=== PATIENT | male | born 1985 | race Two or more races ===

== ENCOUNTER 2022-03-06 14:37 | Outpatient (CLI) | payer OTHER | END 2022-03-06 14:47 | disposition home or self-care (01) | LOC: PPH VACUNA 14:37 | PROVIDERS: ATTEND Emergency Medicine Pediatric Emergency Medicine | DX: Z23 Encounter for immunization (principal) ==

== ENCOUNTER 2022-07-18 08:23 | Outpatient (CLI) | payer OTHER | END 2022-07-18 08:25 | disposition home or self-care (01) | LOC: LAB 08:23 | PROVIDERS: ATTEND Obstetrics & Gynecology | DX: Z20.828 Contact with and (suspected) exposure to other viral communicable diseases (principal); Z20.818 Contact with and (suspected) exposure to other bacterial communicable diseases ==